=== PATIENT | female | born 1980 | race Caucasian/White ===

== ENCOUNTER 2018-09-10 19:37 | Emergency (ER) | payer BC ==
[2018-09-10 19:41] VITALS: BP 127/79; PULSE 78; TEMP 98.2; BMI 19.2
--- NOTE | 2018-09-10 19:57 | PDOC ---
History of Present Illness - General Chief Complaint: Injury Stated Complaint: TOE INJURY (R FOOT) Time Seen by Provider: 09/10/18 19:45 - History of Present Illness Initial Comments: 09/10/18 19:55 37-year-old female 3 months presents for evaluation of right fifth toe pain. She states she was wearing toast socks and accidentally stepped into the corner of a 80 swelling causing her right fifth toe to forcefully abduct. 09/10/18 19:56 She states her reduced [place] at the time of the injury. Past History - Past Medical History Allergies/Adverse Reactions: Allergies Allergy/AdvReac Type Severity Reaction Status Date / Time No Known Allergies Allergy Verified 09/10/18 19:41 Home Medications: Ambulatory Orders NK [No Known Home Medication] 09/10/18 COPD: No - Suicide/Smoking/Psychosocial Hx Smoking History: Never smoked Review of Systems - Review of Systems Musculoskeletal: Yes: See HPI, Joint Pain *Physical Exam - Vital Signs Last Vital Signs Temp Pulse Resp BP Pulse Ox 98.2 F 78 18 127/79 100 09/10/18 19:38 09/10/18 19:38 09/10/18 19:38 09/10/18 19:38 09/10/18 19:38 - Physical Exam Comments: 09/10/18 19:56 Is mild swelling at the right fifth toe. No appreciable deformity. Range of motion of the MTP and IP slightly limited with pain. Tenderness is appropriate. NVID 09/10/18 19:57 Moderate Sedation - Procedure Monitoring Vital Signs: Procedure Monitoring Vital Signs Temperature 98.2 F 09/10/18 19:38 Pulse Rate 78 09/10/18 19:38 Respiratory Rate 18 09/10/18 19:38 Blood Pressure 127/79 09/10/18 19:38 O2 Sat by Pulse Oximetry (%) 100 09/10/18 19:38 ED Treatment Course - RADIOLOGY Radiology Studies Ordered: Category Date Time Status TOE(S) RIGHT [RAD] Stat Radiology 09/10/18 19:51 Ordered Medical Decision Making - Medical Decision Making 09/10/18 20:11 There is a minimally displaced fracture at the proximal phalanx of the right fifth toe *DC/Admit/Observation/Transfer Diagnosis at time of Disposition: Toe fracture, right - Discharge Dispostion Disposition: HOME Condition at time of disposition: Stable Decision to Admit order: No - Referrals Referrals: Rudolph Leonard MD [Staff Physician] - - Patient Instructions Printed Discharge Instructions: Toe Fracture, DI for Toe Fracture Additional Instructions: You may weight-bear as tolerated with the use of the [place] shoe. Keep the toes [place] taped for support. Follow-up with orthopedic surgery in 2-3 days for further evaluation and treatment options as well as to monitor healing and return to the emergency room should symptoms worsen or go unresolved. Avoid anti -inflammatories such as Advil Motrin Aleve and ibuprofen and he may take Tylenol as directed for pain. - Post Discharge Activity
== END 2018-09-10 20:27 | disposition home or self-care (01) ==
LOC: JERFT 19:37
DX: S92.511A Displaced fracture of proximal phalanx of right lesser toe(s), initial encounter for closed fracture (principal); W22.8XXA Striking against or struck by other objects, initial encounter; Y93.89 Activity, other specified; Y92.89 Other specified places as the place of occurrence of the external cause; Y99.8 Other external cause status
CPT/HCPCS: 73660-TC-FY; 99281-25